=== PATIENT | female | born 1955 | race Caucasian/White ===

== ENCOUNTER → 2017-11-27 | Outpatient (CLI) | payer BC, OTHER ==
[~2017-11-27] MED LIST: CITA10TA8 PO; DHEA PO; DICL100T4 PO; DICL50TA; ERGO500017 PO; KRIL1CAP PO; LIDOCAINE 1%-EPI 1:100K, 20ML ONE; LUTE1CAP PO; MECL25TA4 PO; MULT-230 PO; MULT-717 PO; SELE200T10 PO; SODIUM BICARBONATE 4.0%, 5ML ONE; TEST5GEL17 TP; VITA400C43 PO; ZINC CHELATE PO; [UNRECOGNIZED DRUG - CODE] PO; [UNRECOGNIZED DRUG - CODE] PO; [UNRECOGNIZED DRUG - OTHER] PO; [UNRECOGNIZED DRUG - OTHER] PO; [UNRECOGNIZED DRUG - OTHER] PO; [UNRECOGNIZED DRUG - OTHER] PO; [UNRECOGNIZED DRUG - OTHER] PO; [UNRECOGNIZED DRUG - OTHER] PO; [UNRECOGNIZED DRUG - OTHER] SL
== END | disposition home or self-care (01) ==
LOC: CFH 09:57
PROVIDERS: ATTEND Surgery
DX: N63.20 Unspecified lump in the left breast, unspecified quadrant (principal)
CPT/HCPCS: 19285; 77065; J3490

== ENCOUNTER → 2017-12-11 | Outpatient (CLI) | payer OTHER ==
[~2017-12-11] MED LIST changes: -LIDOCAINE 1%-EPI 1:100K, 20ML ONE; -SODIUM BICARBONATE 4.0%, 5ML ONE
== END | disposition home or self-care (01) ==
LOC: STAR 08:37
PROVIDERS: ATTEND Surgery
DX: Z01.812 Encounter for preprocedural laboratory examination (principal); I44.4 Left anterior fascicular block; I45.10 Unspecified right bundle-branch block
CPT/HCPCS: 93005

== ENCOUNTER 2017-12-17 05:38 | Day surgery (SDC) | payer BC, OTHER ==
[~2017-12-17] VITALS: Ht 179.1 cm; Wt 88.0 kg
[2017-12-17] MEDS ORDERED: LACTATED RINGERS 1,000 ML IV SCH (06:45)
[2017-12-17 06:48] VITALS: BP 132/81
[2017-12-17] MEDS ORDERED: SCOPOLAMINE PATCH, 1.5MG PATCH.TD72 TD ONE ×2 (06:58→07:00)
[2017-12-17] MEDS ORDERED: ONDANSETRON 2MG/ML, 2ML ONE ×2 (06:58→08:00)
[2017-12-17] MEDS ORDERED: GABAPENTIN 300 MG CAPSULE ONE (06:59)
[2017-12-17] MEDS ORDERED: ONDANSETRON 2MG/ML, 2ML IVPush ONE (07:00)
[2017-12-17] MEDS ORDERED: GABAPENTIN 300 MG CAPSULE PO ONE (07:00)
[2017-12-17] MEDS ORDERED: ACETAMINOPHEN 500 MG TABLET ONE (07:05)
[2017-12-17] MEDS ORDERED: MIDAZOLAM 1 MG/ML, 2ML ONE (07:17)
[2017-12-17] MEDS ORDERED: FENTANYL PF 100 MCG/2ML ONE (07:17)
[2017-12-17] MEDS ORDERED: ACETAMINOPHEN 500 MG TABLET PO ONE (07:30)
[2017-12-17] MEDS ORDERED: CEFAZOLIN 1,000 MG ONE (07:32)
[2017-12-17] MEDS ORDERED: LABETALOL 5MG/ML, 20ML IV PRN (08:00)
[2017-12-17] MEDS ORDERED: EPHEDRINE 50 MG/ML, 1ML IVPush PRN (08:00)
[2017-12-17] MEDS ORDERED: MORPHINE SULFATE 4 MG/ML, 1ML IVPush PRN (08:00)
[2017-12-17] MEDS ORDERED: MEPERIDINE/PF 25MG/0.5ML IVPush PRN (08:00)
[2017-12-17] MEDS ORDERED: DEXAMETHASONE 4 MG/ML, 1ML ONE (08:00)
[2017-12-17] MEDS ORDERED: EPHEDRINE 50 MG/ML, 1ML IM PRN (08:00)
[2017-12-17] MEDS ORDERED: PROMETHAZINE 25 MG/ML, 1ML IV PRN (08:00)
[2017-12-17] MEDS ORDERED: DIPHENHYDRAMINE 50 MG/ML, 1ML IVPush PRN (08:00)
[2017-12-17] MEDS ORDERED: OXYcodone 5 MG/5 ML ORAL.SOL UDC PO PRN (08:00)
[2017-12-17] MEDS ORDERED: PROMETHAZINE 12.5 MG SUPP PR PRN (08:00)
[2017-12-17] MEDS ORDERED: ONDANSETRON 2MG/ML, 2ML IV PRN (08:00)
[2017-12-17] MEDS ORDERED: ONDANSETRON ODT 8 MG PO PRN (08:00)
[2017-12-17] MEDS ORDERED: MIDAZOLAM 1 MG/ML, 2ML IV PRN (08:00)
[2017-12-17] MEDS ORDERED: PROMETHAZINE 25 MG SUPP PR PRN (08:00)
[2017-12-17] MEDS ORDERED: FENTANYL PF 100 MCG/2ML IV PRN (08:00)
[2017-12-17] MEDS ORDERED: PROPOFOL 50 ML ONE (08:01)
[2017-12-17] MEDS ORDERED: BUPIVACAINE/PF-EPI 0.5% 1:200K INFIL ONE (08:02)
== END 2017-12-17 10:45 | disposition home or self-care (01) ==
LOC: OUT 05:38
PROVIDERS: ATTEND Surgery
DX: D24.2 Benign neoplasm of left breast (principal); Z88.6 Allergy status to analgesic agent; Z88.1 Allergy status to other antibiotic agents; Z88.8 Allergy status to other drugs, medicaments and biological substances
CPT/HCPCS: 19125; 76098; 88307; 88342; J0690; J1100; J2250; J2405; J2704; J3010; J7120; 19285; J0171; J3490; 77065; G0461